=== PATIENT | male | born 1975 | race Caucasian/White ===

== ENCOUNTER 2019-07-05 15:45 | Emergency (ER) | payer OTHER ==
[~2019-07-05] VITALS: Ht 177.8 cm; Wt 90.7 kg
[~2019-07-05 15:45] MED LIST: KEFLEX500 MG PO; NORCO 5-325 TA1 EACH PO
[2019-07-05] MEDS ORDERED: PREDNISONE 5 MG5 M1 PO (15:55)
[2019-07-05] MEDS ORDERED: ZPAK PO (15:55)
[2019-07-05] MEDS ORDERED: MUCINEX600 MG PO (16:36)
[2019-07-05 16:45] VITALS: BP 140/80
== END 2019-07-05 16:45 | disposition home or self-care (01) ==
LOC: M.ERS 15:45
DX: J06.9 Acute upper respiratory infection, unspecified (principal); J18.9 Pneumonia, unspecified organism

== ENCOUNTER → 2019-10-29 | Outpatient (CLI) | payer OTHER ==
[~2019-10-29] MED LIST changes: +MUCINEX600 MG PO; +PREDNISONE 5 MG5 M1 PO; +ZPAK PO
--- NOTE | 2019-10-31 14:03 | PF ---
[address] [address] PULMONARY FUNCTION REPORT Name: DENISE IRAHETA Room: [facility]#: [id number] Admission: 10/29/19 Attend Phys: Mario Alberto Agudelo, Discharge: Date of : 79 Report #: [id number] THIS REPORT FOR: //name// CC: Mario Alberto Agudelo DATE OF SERVICE: 10/29/2019 PULMONARY FUNCTION TEST REPORT FEV1 to FVC ratio is 75% of predicted. FEV1 is 3.6 liters, 86% of predicted. FVC is 4.82 liters, 91% of predicted. Total lung capacity is 94% of predicted. Residual volume is 43% of predicted. In summary, spirometry is within normal limits. There is no significant postbronchodilator change. Total lung capacity is within normal limits. Residual volume is reduced. The patient was not able to perform DLCO maneuvers. <ELECTRONICALLY SIGNED> By: Mahamed Whitfield MD 10/31/19 1403 [id number] Whitfield MD /nt
== END ==
LOC: M.PUL 16:00
DX: R06.00 Dyspnea, unspecified (principal); J30.1 Allergic rhinitis due to pollen; Z68.31 Body mass index [BMI] 31.0-31.9, adult